=== PATIENT | male | born 1960 | race Two or more races ===

== ENCOUNTER 2019-10-26 17:22 | Emergency (ER) | payer SELFPAY ==
[~2019-10-26] VITALS: Ht 172.7 cm; Wt 88.1 kg
[2019-10-26] MEDS ORDERED: AMLODIPINE 2.5MG TABLET PO ONE (23:00)
[2019-10-27 00:35] LABS: EOSINOPHILS % 6.8 % (0.0-5.0); HEMATOCRIT. 42.7 % (42.0-52.0); HEMOGLOBIN. 14.3 g/dL (14.0-18.0); LYMPHOCYTES % 28.8 % (20.0-50.0); MEAN CORPUSCULAR HEMOGLOBIN 30.6 pg (28.0-32.0); MEAN CORPUSCULAR VOLUME 91.5 fL (80.0-94.0); MEAN PLATELET VOLUME 8.1 fl (7.4-10.4); NEUTROPHILS % 53.4 % (40.0-76.0); PLATELET 276 x1000/uL (130-400); RED BLOOD CELL COUNT 4.67 mill/uL (4.7-6.1); RED CELL DISTRIBUTION WIDTH 13.6 % (11.6-14.6)
[2019-10-27 00:39] LABS: CHLORIDE 107 mEq/L (98-107)
[2019-10-27 02:38] VITALS: BP 101/58
== END 2019-10-27 02:42 | disposition home or self-care (01) ==
LOC: ER 17:22
DX: I10 Essential (primary) hypertension (principal); Z98.890 Other specified postprocedural states
CPT/HCPCS: 36415; 71045; 80053; 84484; 85025; 93005; 99284